=== PATIENT | female | born 1950 | race Caucasian/White ===

== ENCOUNTER 2020-06-19 09:02 | Emergency (ER) | payer OTHER, SELFPAY ==
[2020-06-19 09:18] VITALS: BP 125/71; PULSE 81; RESP 16; TEMP 36.3; O2SAT 99
--- NOTE | 2020-06-19 09:19 | ED.WOUNDLAC ---
HPI - Wound/Laceration General Chief Complaint: Wound/Laceration Stated Complaint: laceration left hand Time Seen by Provider: 06/19/20 09:22 Source: patient and RN notes reviewed Mode of arrival: ambulatory Limitations: no limitations History of Present Illness HPI narrative: This is a 69 years old female presents to the office for an evaluation of left hand laceration prior to arrival. She excellently stabbed her hand between first and second finger with a kitchen knive. Bleeding has been controlled with pressure. She takes baby ASA. Denies any other illness/injury. TD is up to date Related Data Home Medications Medication Instructions Recorded Confirmed buspirone 30 mg PO BID 06/19/20 06/19/20 duloxetine 60 mg PO DAILY 06/19/20 06/19/20 exemestane 25 mg PO DAILY 06/19/20 06/19/20 pantoprazole 40 mg PO DAILY 06/19/20 06/19/20 Allergies Allergy/AdvReac Type Severity Reaction Status Date / Time No Known Allergies Allergy Unknown Unverified 06/19/20 09:24 Review of Systems Review of Systems: Narrative: CONSTITUTIONAL: Denies fever CARDIOVASCULAR: Denies chest pain, palpitation RESPIRATORY: Denies dyspnea, wheezing, cough GASTROINTESTINAL: Denies abdominal pain, nausea, vomiting SKIN: cut to her left hand MUSCULOSKELETAL: Denies acute fingers/hand imobility NEUROLOGIC: Denies lightheaded/dizziness prior to accident. All other systems reviewed are negative, except as documented in HPI. [facility] Past Medical History Medical History (Updated 06/19/20 @ 09:28 by BRAD Conrad) Depression GERD (gastroesophageal reflux disease) HLD (hyperlipidemia) HTN (hypertension) HX: breast cancer Surgical History Surgical History (Updated 06/19/20 @ 09:22 by BRAD Conrad) Hx of cholecystectomy Hx of hysterectomy Family History Family History Mother Family history of premature coronary heart disease Father Family history of malignant neoplasm of thyroid, Onset Age: 52 Patient's father is Social History Social History Alcohol intake: never Comments At time of signature, I agree with nursing past medical, surgical, social and family history. There is no relevant family history pertinent to the presenting complaint. Exam Narrative: Exam Narrative: GENERAL: This is a well-nourished, well-developed patient, in no apparent distress. CARDIOVASCULAR: Regular rate and rhythm without murmurs, gallops, or rubs. RESPIRATORY: Clear to auscultation. Breath sounds equal bilaterally. No wheezes, rales, or rhonchi. GASTROINTESTINAL: Abdomen soft, non-tender, nondistended. Bowel sounds are active. No hepato-splenomegaly, or palpable masses. No guarding. SKIN: left hand between first and second phalange fingerweb noted gapping laceration with high tension wound, no active bleeding NEURO: awake, alert, and oriented to person, place and time. There were no obvious focal neurologic abnormalities. Steady gait EXTREMITIES: Normal ROM in upper extremities, cap refills brisk with strong radius pulses. Karen Coma Scale Eye Opening: Spontaneous 4 Karen Coma Scale Motor: Obeys Commands 6 Karen Coma Scale Verbal: Oriented 5 Course Vital Signs Vital signs: Vital Signs Temperature 97.4 F L 06/19/20 09:18 Pulse Rate 81 06/19/20 09:18 Respiratory Rate 16 06/19/20 09:18 Blood Pressure 125/71 06/19/20 09:18 Pulse Oximetry 99 06/19/20 09:18 Temperature 97.4 F L 06/19/20 09:18 Pulse Rate 81 06/19/20 09:18 Respiratory Rate 16 06/19/20 09:18 Blood Pressure 125/71 06/19/20 09:18 Pulse Oximetry 99 06/19/20 09:18 Procedures Laceration Laceration 1: Date: 06/19/20 Time: 09:28 Site: hand Side (If applicable): left Size (cm): 1 Description: linear Depth: simple, single layer Local Anesthetic: lidoc
== END 2020-06-19 10:11 | disposition home or self-care (01) ==
DX: S61.412A Laceration without foreign body of left hand, initial encounter (principal); W26.0XXA Contact with knife, initial encounter; K21.9 Gastro-esophageal reflux disease without esophagitis; E78.5 Hyperlipidemia, unspecified; I10 Essential (primary) hypertension; F32.9 Major depressive disorder, single episode, unspecified; Z85.3 Personal history of malignant neoplasm of breast
CPT/HCPCS: 12001; 99212; G0463

== ENCOUNTER 2022-03-29 12:29 | Outpatient (CLI) | payer OTHER, SELFPAY ==
[2022-03-29 13:36] LABS: Hematocrit 39.8 % (37.0-47.0); Hemoglobin 12.8 g/dL (12.0-15.0); Mean Corpuscular HGB Conc 32.2 g/dl (32-36); Mean Corpuscular Hemoglobin 32.3 pg (26-34); Mean Corpuscular Volume 100.5 fl (80-100); Platelet Count Result 267 k/mm3 (150-375); Red Blood Count 3.96 M/mm3 (4.2-5.4); Red Cell Distribution Width 12.6 % (11.5-14.5); White Blood Count 4.6 K/mm3 (4.5-10.0)
[2022-03-29 13:52] LABS: Anion Gap 3 mmol/L (8-16); Blood Urea Nitrogen 14 mg/dL (7-17); Calcium 9.4 mg/dL (8.4-10.2); Carbon Dioxide 32 mmol/L (22-30); Chloride 102 mmol/L (98-107); Estimated Glomerular Filt Rate > 60; Glucose 96 mg/dL (65-110); Potassium 3.9 mmol/L (3.4-5.0); Sodium 137 mmol/L (137-145)
== END 2022-03-29 12:30 | disposition home or self-care (01) ==
LOC: ANHLAB 12:39
PROVIDERS: Visit Provider Internal Medicine Interventional Cardiology
DX: R94.30 Abnormal result of cardiovascular function study, unspecified (principal); Z01.810 Encounter for preprocedural cardiovascular examination
CPT/HCPCS: 36415; 80048; 85027